=== PATIENT | male | born 1945 | race Caucasian/White ===

== ENCOUNTER 2018-05-14 12:02 | Inpatient (IN) | payer OTHER, BC ==
[~2018-05-14] VITALS: Ht 172.7 cm; Wt 113.4 kg
--- NOTE | ~2018-05-14 | EKG ---
[address] [address] ELECTROCARDIOGRAM REPORT Name: JULIANA CHRISTIAN Room #: 463-P [facility]#: [id number] Admission: 05/14/18 Attend Phys: Dev Chase MD Discharge: 05/15/18 Date of : 47 Report #: [id number] THIS REPORT FOR: //name// [facility] ED Test Date: 2018-05-14 Test Time: 12:54:35 Pat Name: JULIANA CHRISTIAN Department: Room: [facility] Gender: M Publicity Consultant: Gracy MICHAEL : 1945 Requested By: Ivonne Mccabe Order Number: [id number] MD: Jay Jay Farfan Measurements Intervals [place] Rate: 60 P: 53 [place]: 198 QRS: 67 QRSD: 84 T: 38 QT: 429 QTc: 429 Interpretive Statements Sinus rhythm No significant abnormality No previous ECG available for comparison Electronically Signed On 05-16-2018 8:27:09 CDT by Jay Jay Farfan [email or web address] <ELECTRONICALLY SIGNED> By: Jay Jay Farfan MD, [facility] 05/16/18 0827 [id number] Jay Jay Farfan MD, [facility] /EPI
[~2018-05-14 12:02] MED LIST: AMOXICILLIN 50500 MG PO; APAP500 PO; ASPIR 8181 MG PO; DEXILANT60 MG PO; DUTOPROL 50-121 EACH PO; FISH OIL 1,001000 M2 PO; PRINIVIL40 MG PO
[2018-05-14 12:43] LABS: POC CA IONIZED 4.8 mg/dL (4.5-5.3); POC CREATININE 0.8 mg/dL (0.6-1.3); POC HEMOGLOBIN 13.3 g/dL (14.0-18.0); POC POTASSIUM 3.6 mmol/L (3.5-5.1)
[2018-05-14 12:44] LABS: ABSOLUTE NEUTROPHILS 4.9 thou/uL (1.4-8.2); BASOPHILS 1.1 % (0.0-2.0); EOSINOPHILS 1.9 % (0.0-3.0); HEMATOCRIT 40.8 % (42.0-52.0); HEMOGLOBIN 14.1 gm/dL (14.0-18.0); LYMPHOCYTES 22.3 % (24.0-44.0); MCH 30.2 pg (26.0-34.0); MCHC 34.5 g/dL (28.0-37.0); MCV 87.6 fL (80.0-100.0); MONOCYTES 8.7 % (1.0-8.0); PLATELET COUNT 200 thou/uL (150-400); RBC 4.66 mil/uL (4.50-6.00); WBC 7.4 thou/uL (4.0-11.0)
[2018-05-14] MEDS ORDERED: LIPITOR10 MG PO (12:53)
[2018-05-14] MEDS ORDERED: METFORMIN HCL500 MG PO (12:53)
[2018-05-14] MEDS ORDERED: PEPCID20 MG PO (12:53)
[2018-05-14 12:56] LABS: CALCIUM 9.6 mg/dL (8.5-10.1); CREATININE 0.9 mg/dL (0.7-1.3); POTASSIUM 3.6 mmol/L (3.5-5.1)
[2018-05-14 13:02] LABS: ALBUMIN 3.8 g/dL (3.4-5.0); TOTAL BILIRUBIN 0.4 mg/dL (<0.1-1.0); TOTAL PROTEIN 6.7 g/dL (6.4-8.2)
[2018-05-14 13:19] VITALS: BP 175/63
[2018-05-14 13:28] LABS: APTT 27.5 Seconds (24.5-32.8); PROTIME 10.4 Seconds (9.3-11.4)
[2018-05-14 13:44] LABS: URINE BILIRUBIN NEGATIVE (Negative); URINE BLOOD NEGATIVE (Negative); URINE CLARITY CLEAR; URINE COLOR YELLOW; URINE GLUCOSE-RANDOM* NEGATIVE (Negative); URINE KETONES NEGATIVE (Negative); URINE LEUKOCYTES-REFLEX NEGATIVE (Negative); URINE NITRITE-REFLEX NEGATIVE (Negative); URINE PROTEIN (DIPSTICK) NEGATIVE (Negative); URINE SPECIFIC GRAVITY <= 1.005 (1.005-1.035); URINE UROBILINOGEN 0.2 E.U./dl (0.2-1.0)
[2018-05-14 13:53] LABS: AMP/METHAMP Negative (Negative); BARBITURATES Negative (Negative); BENZODIAZEPINES Negative (Negative); COCAINE Negative (Negative); METHADONE Negative (Negative); OPIATES Negative (Negative); PCP Negative (Negative)
[2018-05-14 14:26] VITALS: BP 175/63
[2018-05-14 16:02] VITALS: BP 143/69
[2018-05-14 17:11] VITALS: BP 155/67
[2018-05-14 19:51] VITALS: BP 165/70
[2018-05-15 04:07] LABS: HEMATOCRIT 39.2 % (42.0-52.0); HEMOGLOBIN 13.7 gm/dL (14.0-18.0); MCH 30.4 pg (26.0-34.0); MCHC 34.9 g/dL (28.0-37.0); RBC 4.51 mil/uL (4.50-6.00); RDW 13.2 % (10.5-14.5); WBC 8.5 thou/uL (4.0-11.0)
[2018-05-15 04:28] LABS: ANION GAP 8 mmol/L (7-16); BUN 18 mg/dL (7-18); CALCIUM 9.5 mg/dL (8.5-10.1); CHLORIDE 104 mmol/L (98-107); CHOLESTEROL 125 mg/dL (<200); CO2 28 mmol/L (21-32); CREATININE 1.1 mg/dL (0.7-1.3); GLUCOSE 128 mg/dL (74-106); POTASSIUM 3.7 mmol/L (3.5-5.1); SODIUM 140 mmol/L (136-145)
[2018-05-15 04:38] VITALS: BP 136/68
[2018-05-15 05:24] LABS: HDL CHOLESTEROL 31 mg/dL (>40); LDL CHOLESTEROL 61 mg/dL (<100); TRIGLYCERIDE 169 mg/dL (<150); VLDL 34 mg/dL (<40)
[2018-05-15 05:28] LABS: SERUM ASSESSMENT Clear
[2018-05-15 08:00] VITALS: BP 130/58
[2018-05-15] MEDS ORDERED: ASPIR 8181 MG PO (14:28)
[2018-05-15 14:55] VITALS: BP 130/58
== END 2018-05-15 15:31 | disposition home or self-care (01) | DRG 69 ==
LOC: ER 12:02 → EROBS 14:23 → 4W 16:28
PROVIDERS: Hospitalist; Student in an Organized Health Care Education/Training Program
DX: G45.9 Transient cerebral ischemic attack, unspecified (principal); I10 Essential (primary) hypertension; Z96.651 Presence of right artificial knee joint; E78.5 Hyperlipidemia, unspecified; E11.9 Type 2 diabetes mellitus without complications; K21.9 Gastro-esophageal reflux disease without esophagitis; Z85.46 Personal history of malignant neoplasm of prostate; Z79.82 Long term (current) use of aspirin; Z79.899 Other long term (current) drug therapy
CPT/HCPCS: 10045